=== PATIENT | male | born 1955 | race Caucasian/White ===

== ENCOUNTER 2023-12-07 10:41 | Inpatient (IN) | payer OTHER, MEDICARE, SELFPAY ==
[2023-12-07] VITALS (11 sets, daily range): BP systolic 113–134; BP diastolic 73–87; PULSE 60; O2SAT 100; BMI 27.9; BMI 27.8
[2023-12-07 05:32] LABS: % Basophils 0.6 % (0-2); % Immature Granulocytes 0.4 % (0-0.5); % Monocytes 8.3 % (1.7-9.3); % Neutrophils 59.7 % (42.2-75.2); Absolute Eosinophils 0.2 10^3/uL (0-0.7); Absolute Lymphocytes 1.4 10^3/uL (1.2-3.4); Absolute Monocytes 0.4 10^3/uL (0.1-0.6); Hemoglobin 13.9 g/dL (13.0-18.0); Mean Corp Hgb Conc. 34.8 g/dL (33.0-37.0); Mean Corpuscular Hgb 29.1 pg (27.0-31.0); Mean Corpuscular Volume 83.9 fL (80.0-94.0); Mean Platelet Volume 8.7 fL (7.4-10.4); Nucleated Red Blood Cells % 0 % (-); Platelet Count 208 10^3/uL (130-400); Red Blood Cell Count 4.77 10^6/uL (4.70-6.10); Red Cell Dist. Width 12.2 % (11.5-14.5); White Blood Cell Count 5.1 10^3/uL (4.8-10.8)
[2023-12-07] MEDS: ZOFRAN 4 MG IV ×2 (05:39→17:44)
[2023-12-07 05:51] LABS: ALT (SGPT) 24 U/L (0-50); AST (SGOT) 26 U/L (17-59); Albumin 4.3 g/dl (3.5-5.0); Alkaline Phosphatase 64 U/L (38-126); Blood Urea Nitrogen 17 mg/dl (9-20); Calcium 9.1 mg/dl (8.4-10.2); Carbon Dioxide 24 mmol/L (22-30); Chloride 107 mmol/L (98-107); Estimated Creatinine Clearance 93 ml/min; Glucose 128 mg/dl (70-99); Sodium 140 mmol/L (135-145); Total Bilirubin 0.9 mg/dl (0.2-1.3); Total Protein 6.4 g/dl (6.3-8.2); eGFR > 60.00
--- NOTE | 2023-12-07 06:22 | ED.GENMED ---
History of Present Illness
General
Chief Complaint: Dizziness
Source: patient, records and spouse
Exam Limitations: none
Time Seen by Provider: 12/07/23 05:59
Nursing documentation reviewed up to this point in time: agreed with
History of Present Illness
History of Present Illness:
Patient is a 68-year-old male who presents to the emergency department after waking at 4 AM with dizziness and the room spinning. Patient was nauseous with vomiting and diaphoretic. Patient was unable to stand. Patient woke in a couple times
during the night with mild dizziness but this was much more severe and would not resolve. Patient denies any palpitations, chest pain, shortness of breath. Patient denies any recent fever or chills, nasal congestion, sore throat or cough. Patient
denies abdominal pain or diarrhea. Patient denies any head or neck pain. Patient denies any manipulation of his neck recently. Patient denies any visual or speech difficulties. Patient denies any focal weakness. Patient was ataxic. Patient has
chronic tinnitus and decreased hearing and these remain unchanged. Patient does have a pacemaker for sick sinus syndrome. Patient denies any recent illnesses or injuries. Approximately a year ago the patient had an echocardiogram for dilated
aortic root. The echo showed good cardiac function and that the dilated aortic root had actually decreased in size.
Past History
Past History
ED Past Medical History: Arrthythmia (sick sinus syndrome, paroxysmal V. tach), Hypercholesterolemia and Other (Dilated aortic root)
ED Past Surgical History: Cardiac and Orthopedic
Social History
Tobacco: Non-smoker
Alcohol: Occasional
Family History
Family History: Negative Diabetes, Hypertension or CAD
Review of Systems
Review of Systems
All Other Systems: ROS reviewed and negative except as documented in HPI and ROS
Constitutional: Reports fatigue; Denies fever or chills
EENT: Reports other (Chronic tinnitus and decreased hearing unchanged); Denies sore throat or runny nose
Respiratory: Reports no symptoms
Cardiac: Reports no symptoms
ABD/GI: Reports nausea and vomiting; Denies abdominal pain or diarrhea
: Reports no symptoms
Musculoskeletal: Reports no symptoms
Skin: Reports no symptoms
Neurological: Reports dizzy; Denies headache, weakness or numbness
Hematologic/Lymphatic: Reports no symptoms
Phy Exam
Physical Exam
Physical Exam:
Physical Exam
General: moderate distress, alert and appropriate, well nourished, well hydrated
HENT: Normocephalic, supple with no lymphadenopathy, no thyromegaly
Eyes: Clear sclera, conjuctiva without injection, horizontal nystagmus going either direction and listening going to the dizziness that does resolve after multiple beats of nystagmus
Heart: Regular rhythm and rate. No S3, S4. No murmur. No NVD, bruit
Lungs: No respiratory distress, no stridor, lung sounds clear and equal bilaterally
Abdomen: Soft, nontender, no organomegaly, no CVA tenderness, BS good
Neuro: Alert and oriented x 3, CN II - XII intact, no motor focality, no cerebellar dysfunction, sensory intact
Skin: no rash. Pale mildly diaphoretic
Psychiatric: well kept. interactive and cooperative
Extremities: No edema, cyanosis, tenderness, Good and equal peripheral pulses.
Scores
Heart Failure Risk
Heart Failure Risk Score: Not Applicable
Heart Score for Chest Pain Patients
STEMI patient?: Not applicable
Withdrawal Assessment of Alcohol
Withdrawal Assessment Completed?: Not applicable
Course
Orders/Labs/Results
Orders:
Orders
12/07/23 05:10
EKG [Electrocardiogram (*1)] Urgent
Reason for Study: Vertigo / Dizzy
EKG- Treatment ONCE
12/07/23 05:23
CMP [Comprehensive Metabolic Panel] Urgent
Complete Blood Count/With Diff Urgent
12/07/23 05:38
Ondansetron Injectable [Zofran] 4 mg .ROUTE .[facility]
12/07/23 05:39
Ondansetron Injectable [Zofran] 4 mg IV NOW STA
12/07/23 05:51
Troponin I Urgent
12/07/23 Breakfast
Cholesterol Lowering
At Your Request: Full Participation
Cholesterol Lowering: Sodium, 2 Gram
12/07/23 06:10
0.9% Sodium Chloride 1000 ml [Nss] 1,000 ml IV BOLUS
Lorazepam [Ativan] 0.5 mg IV NOW STA
12/07/23 06:11
CT Head W/o Iv Contrast Urgent
Comment:
Reason For Exam: vertigo
12/07/23 07:18
Physical Therapy Consult [Pt Eval And Treat] Urgent
Treatment: vertigo
Activity Level: Ambulate
12/07/23 09:13
Consult Neurology [NEUROLOGY CONSULT] Urgent
Consulting Provider: Jhonny Grace
Was physician already notified: Yes
Reason for consult: veryigo
12/07/23 10:23
DIETARY CONSULT Routine
Reason for Consult: stroke/TIA
12/07/23 10:31
Admit/Transfer Patient As Directed
Co-Sign Provider:
Level of Care: Inpatient admission
Assign to:: Telemetry
Physician / Group: lyn miller
Diagnosis: vertigo
Reason for Telemetry: Arrhythmia
Date to Stop Telemetry: 12/10/23
Time to Stop Telemetry: 11:00
Reason for Hospitalization: vertigo
Expected length of stay greater than two midnights?: Yes
ELOS- Estimated Length of Stay in days: 3
I certify the patient meets the requirements for IP care: Yes
12/07/23 10:33
Code Status As Directed
Resuscitation Status: Full Code
12/07/23 10:36
Meclizine [Antivert] 25 mg PO Q8HPRN PRN
12/07/23 11:39
Bisacodyl [Dulcolax] 10 mg RECTAL [id number] PRN
Docusate W/Senna [Senokot-S] 1 tablet PO BIDPRN PRN
Ondansetron Injectable [Zofran] 4 mg IV Q6HPRN PRN
Polyethylene Glycol Powder [Miralax] 17 grams PO DAILYPRN PRN
12/07/23 11:39
Activity As Directed
Activity Level: As Tolerated
Neurological Checks As Directed
Frequency: q4h
Vital Signs As Directed
Frequency: Per unit guidelines
Pulse Ox/spot Check [RESP] Routine
Quantity: 1
DX Deep Vein Thrombosis Video Routine
12/07/23 12:14
Ibuprofen [Motrin] 600 mg PO BIDPRN PRN
12/07/23 18:00
Acebutolol [Sectral] 200 mg PO QPM
Enoxaparin Sodium [Lovenox] 30 mg SC QPM
Rosuvastatin Calcium [Crestor] 10 mg PO QPM
12/08/23 08:00
Ascorbic Acid [Vitamin C] 500 mg PO DAILY
Cholecalciferol (Vitamin D3) [VITAMIN D3 (cholecalciferol)] 25 mcg PO DAILY
Multivitamin [Theragran] 1 tablet PO DAILY
12/10/23 11:00
DC Protocol for Telemetry ONCE
Abnormal Lab Results
12/07/23
05:23
Glucose 128 H mg/dl
(70-99)
12/07/23 05:23
12/07/23 05:23
Vital Signs
Initial and Last Documented VS:
Initial Vital Signs
Temp Pulse Resp BP Pulse Ox
97.7 F 61 16 121/83 95
12/07/23 05:12 12/07/23 05:12 12/07/23 05:12 12/07/23 05:12 12/07/23 05:12
Last Documented Vital Signs
Temp Pulse Resp BP Pulse Ox
98.2 F 61 16 122/73 97
12/07/23 11:58 12/07/23 11:58 12/07/23 11:58 12/07/23 11:58 12/07/23 11:58
*Radiology
Radiology exam reviewed: radiology read reviewed
*Pulse Oximetry
Patient hypoxic: no
*EKG
Interpreted by ED Provider?: Yes
EKG Intrepretation Date: 12/07/23
EKG Intrepretation Time: 06:29
Interpretation: abnormal
Comparison EKG: no changes
Heart Rate: 63
Rate: normal
Rhythm: av sequential
*Insulation Cupola Charger Interpretation
Rate: normal
Interpretation: abnormal
Heart Rate: 63
Rhythm: av sequential
*Critical Care Note
Total Time (30-74mins, 75-104mins- exclusive of procedures): Not Applicable
Update Note
Update Note:
Patient seen by physical therapy and there is concern that this is not a peripheral cause with central cause. Patient has a pacemaker and may not be able to go into the MRI. Patient will be admitted for treatment and further workup and therapy.
Cardiology check the patient's pacemaker and it is MRI compatible. Spoke with hospitalist and requesting consult with neurology.
ED Attending Note
-
Portions of this chart may have been created with voice recognition software.� Occasional wrong word or��sound alike� substitutions may have occurred due to the inherent limitations of voice recognition software.
Discharge Plan
Departure
Patient Disposition: Admit
Date of Disposition: 12/07/23
Time of Disposition: 09:03
Admit to: Telemetry
Admit to doctor: Hospitalist
Presentation/result/management discussed w/ accepting MD/DO: Hospitalist
Patient with high blood pressure during this ER visit?: No
Condition: Serious
Covid-19: Not Applicable
Discharge Problem:
Vertigo
Interventions
Interventions:
*Risk Screen - Suicide Last Done: 12/07/23 12:21
*General Assessment Last Done: 12/07/23 05:12
*Neglect/Abuse Screening Last Done: 12/07/23 05:12
ED- Fall Risk Assessment Last Done: 12/07/23 05:12
*ED COVID-19 Vaccine History Last Done: 12/07/23 12:21
*Nursing Disposition Last Done: 12/07/23 11:40
ED- Neurological Assessment Last Done: 12/07/23 11:00
ED- Cardiac Assessment Last Done: 12/07/23 05:54
ED Swallowing Screen Last Done: 12/07/23 05:54
Discharge Date and Time
Discharge Date/Time: 12/07/23 11:41
[2023-12-07 06:24] LABS: Troponin I < 0.012 ng/ml
[2023-12-07] MEDS: ATIVAN 0.5 MG IV (06:39)
[2023-12-07] MEDS: NSS 1000 IV (06:40)
--- NOTE | 2023-12-07 09:53 | HP.FOC2 ---
Focused History & Physical
Chief Complaint
Relevant Past Medical History: Negative
Relevant Social History: ETOH (4 drinks per week, 2 on monday and 2 on monday), Substance Abuse (no hx) and Tobacco Use (no hx)
Relevant Family History: Positive for (father with CAD, Mother with Ovarian Ca)
Relevant Past Surgical History: Positive for (right shoulder and knee athroscopy, left knee athroscopuy, pacemake, right ulner nerve decompression, dnetal implants, ppm in 2005)
Review of Systems
Review of Pertinent Systems: All Systems Negative Except for the Following Positives
Medication
See Medication form for detailed medications: Yes
Medication List (including Herbals & OTC):
acebutolol 200 mg capsule 200 mg PO QPM 02/23/12
rosuvastatin 10 mg tablet 10 mg PO QPM 12/08/17
ibuprofen 200 mg tablet 600 mg PO BIDPRN PRN mild pain 06/02/21
collagen 1 dose PO DAILY 07/01/22
multivitamin with minerals-folic acid 200 mcg chewable tablet (Multivitamin Gummies) 2 tab PO DAILY 07/01/22
ascorbic acid (vitamin C) 250 mg chewable tablet (Vitamin C) 500 mg PO DAILY 12/07/23
cholecalciferol (vitamin D3) 1 tab PO DAILY 12/07/23
Medications Reviewed: Yes
Allergies and Reactions
Patient has Allergies: Yes
Noted Allergies and Reactions:
Allergy/AdvReac Type Severity Reaction Status Date / Time
Sulfa (Sulfonamide Allergy Rash Verified 12/07/23 05:07
Antibiotics)
sulfisoxazole Allergy Rash Verified 12/07/23 05:07
Pertinent Physical Exam
All Other Systems: Negative (General: Sitting straight up in bed, no evidence of right or left lean, nad)
Head/Neck: Other (dizziness worse with head movements) and Other (Horizontal nystagmus)
Lungs: Normal
Heart: Normal
Abdomen: Normal
Extremities: Normal
Neurological: Normal and Other (CN II-XII intact, no finger dysmetry, heel to zambrano normal b/l)
Other: No focal neurological defecits, 5/5 motor strenght in UE/LE B/L
Diagnosis / Assessment
PLEASE Disregard. Wrong note type
Plan / Procedure
PLEASE Disregard. Wrong note type
Anesthesia/Sedation to be done by Anesthesia Provider: No
--- NOTE | 2023-12-07 10:30 | HPS.HSE ---
Family Physician
-
Family Physician: Kaleb Goss
Chief Complaint
-
Chief Complaint: dizziness and nausea/vomiting
History of Present Illness
HPI / Indication for Planned Procedure:
68M with a pmh hx of pafib and sss s/p ppm that was changed in 2022 presenting with acute onset dizziness described as room spinning sensation along with nausea and sweating. States was waking him up from his sleep, worse when he is moving his head,
opening his eyes, never occurred previously and without associated numbness, tinglining, loss of sensation, focal weakness, cold like symptoms. Did not attempt to ambulate and was brought to the hospital by EMS. Now his is at bedside.
CT brain without acute pathology. EKG atrially paced rhythm.
Trop negative
Should be noted he is [facility], has hearing aids, tinnitus is chronic
Medical History
Past Medical History
Past Medical History: Reports Arrhythmia and Hypercholesterolemia
Past Surgical History: Reports Cardiac (PPM ) and Orthopedic (Right knee and shoulder, left knee, right ulner nerve decompression)
Social History
Tobacco: Non-smoker
Alcohol: Occasional
Drug: None
Personal:
Living: With Family
Family History
Family History: CAD (Dad ) and Cancer (MOM - Ovarian )
Allergies / Home Medications
Allergies reflects when Allergies were last updated in [facility].
Home Medications with original date entered in [facility]
Allergy/Medication List:
sulfa - rash
Review of Systems
-
History Source: Patient and Family
A 12 point ROS was completed and negative except as noted: Yes
Physical Exam
Vital Signs
Vital Signs
Temp Pulse Resp BP Pulse Ox
97.7 F 60 13 130/87 98
12/07/23 05:12 12/07/23 07:00 12/07/23 07:00 12/07/23 07:00 12/07/23 06:45
Physical Exam
General: Well Developed, No Apparent Distress and Comfortable
HEENT: NormoCephalic, Anicteric, Atraumatic, Good Dentition, Ears Appear Normal and Hearing Impaired
Respiratory: Clear
Cardiac: S1/S2 and Regular Rhythm
Breast: Deferred by me
GI: Soft, Non Tender, Non Distended and Normal Bowel Sounds
Rectal: Deferred by Provider
Genito-urinary: Deferred by me
Musculoskeletal: No Clubbing, No Cyanosis and No Edema
Skin: Warm and Dry
Neuro: Awake, Alert, Oriented, AO x 3, No Motor Deficits, Nonfocal/grossly intact, Cranial Nerves Intact, No Sensory Deficits and Other (heel to zambrano normal, no finger dysmetry)
Psych: Calm
Laboratory Results
-
12/07/23 05:23
12/07/23 05:23
Laboratory Results
Total Bilirubin 0.9 mg/dl (0.2-1.3) 12/07/23 05:23
AST 26 U/L (17-59) 12/07/23 05:23
ALT 24 U/L (0-50) 12/07/23 05:23
Alkaline Phosphatase 64 U/L (38-126) 12/07/23 05:23
Troponin I < 0.012 ng/ml 12/07/23 05:51
Data Reviewed
-
Diagnostic Radiology: Image Personally Visualized and interpreted, Report Reviewed by me and Discussed with Family
CT Scan: Image Personally Visualized and interpreted, Report Reviewed by me and Discussed with Family
Medical Tests (Nuc Med, Echo, EKG etc): Image Personally Visualized and interpreted, Report Reviewed by me and Discussed with Family
Impression/Plan
-
IMPRESSION:
Vertigo with ddx of bppv, posterior cva/tia (but unlikely as neuro exam is not consistent), vestibular neuritis, meniere dieases
PAFIB c/b SSS s/p DC-PPM ([employer] Model [id number]/Serial [id number], Implant 07/01/2022)
HLD
PLAN:
Vertigo
-Provide meclizine and antiemetics
-Monitor on tele, without evidence of presyncope unlikley cardiac in nature
-MRI will need to confirm with [facility] if compatible
-Neuro consulted
-If MRI demonstrates stroke like findings then would consider obtain 2d echo with bubble if indicated, A1c and Lipid profile
-PT/OT consulted as he will likely benefit from vestibular rehab
PAFIB c/b SSS on BB with DC-PPM
-Continue Acebutolol
-ChadsVasc 1 not on AC
HLD
-Continue statin
Pending neuro eval +- MRI, PT/OT
Full Code
DVT ppx: LMWH
Diet: Regular House/Low Cholestrol
Dispo: [facility] with tele
[2023-12-07] MEDS: ANTIVERT 25 MG PO ×3 (11:05→23:37)
--- NOTE | 2023-12-07 16:43 | CON.NEURO4 ---
Consultation - Neurology 4
-
CONSULTING PHYSICIAN: Jhonny Grace MD(Neurology)
REFERRING PHYSICIAN: Hospitalist
DICTATED BY: Jhonny Grace
DATE/TIME OF REQUEST: December 07, 2023
DATE/TIME OF CONSULTATION: December 07, 2023 10:30 AM
Reason for Consultation: Dizziness
History of Present Illness:
This is a 68 year old right handed male who has presented to the hospital with chief complaint of dizziness. Of chronic atrial fibrillation sick sinus syndrome status post pacemaker placement, chronic hearing loss with tinnitus who had been in his
usual state of health till early this morning. He woke up feeling lightheaded and was unable to change positions without getting dizzy. He describes his symptoms as room spinning sensation with change in position or turning his head. No
difficulty speaking swallowing. No incoordination
Past Medical History: Chronic atrial fibrillation sick sinus syndrome chronic hearing loss
Surgical History: Cardiac pacemaker. Knee procedures. Right ulnar nerve decompression
Family History: Noncontributory
Social History: lives at home does not smoke use alcohol. 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
Allergies: Sulfa
Home Medications: Acebutolol Crestor vitamin D
Review of Symptoms:
Patient denies any fever, headache, chest pain, shortness of breath, GI or symptoms.
�Per the HPI.�All systems are reviewed negative except above.
�-
Vital Signs:
Temp Pulse Resp BP Pulse Ox
36.8 C 61 16 122/73 97
12/07/23 11:58 12/07/23 11:58 12/07/23 11:58 12/07/23 11:58 12/07/23 11:58
Physical Exam:
The patient is afebrile, heart sounds S1 and S2 are (regular / irregular), and chest is clear to auscultation bilaterally.
NIH Stroke Scale (if applicable):
Neurologic Examination:
The patient is awake, alert and oriented x 3. (He/She) is able to follow commands and answer questions appropriately. There is no aphasia or dysarthria. On cranial nerve assessment, pupils are 3 mm bilateral, round and reactive to light and
accommodation. Visual long are full. Extraocular movements are intact. Facial sensations are intact and bilaterally symmetrical, there is no facial asymmetry. Hearing is intact bilaterally to normal conversation volume. Tongue palate and uvula
are midline. Sternocleidomastoid strengths are full bilaterally. Motor strengths are 5/5 bilateral upper and lower extremities on medical research [place] scale. There is no drift or involuntary movement noted. Deep tendon reflexes are 2+ bilateral
upper and lower extremities and Babinski is absent bilaterally. Sensations of pain, touch, temperature and vibration are intact and bilaterally symmetrical. There was no extinction noted on double simultaneous stimulation. Coordination is intact by
finger to nose bilaterally.
Lab Results:
Neuro Imaging: MRI of head shows mild cortical atrophy normal ventricles minimal small vessel disease
Impression:
Mr. 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
Differentials for the patient's presentation include:
1. Vertebrobasilar insufficiency
Patient has the following risk factors for their symptoms:
IV Tenecteplase/IAT candidacy
Recommendations:
1. Meclizine
2. Aspirin
3. PT/OT
4. Bedrest
Discussed patient care with:
Total Time Spent with Patient (in minutes): 30
Vital Signs and Labs
-
Vital Signs and Labs:
Vital Signs
Temp Pulse Resp BP Pulse Ox
36.8 C 61 16 122/73 97
12/07/23 11:58 12/07/23 11:58 12/07/23 11:58 12/07/23 11:58 12/07/23 11:58
Lab Results
12/07/23 05:23
12/07/23 05:23
Sodium 140 mmol/L (135-145) 12/07/23 05:23
Potassium 4.0 mmol/L (3.5-5.1) 12/07/23 05:23
BUN 17 mg/dl (9-20) 12/07/23 05:23
Glucose 128 mg/dl (70-99) H 12/07/23 05:23
Calcium 9.1 mg/dl (8.4-10.2) 12/07/23 05:23
[2023-12-07] MEDS: MOTRIN 600 MG PO (16:53)
[2023-12-07] MEDS: LOVENOX 40 MG SC (16:55)
[2023-12-07] MEDS: ASPIR LOW (ENTERIC COATED) 81 MG PO (17:12)
[2023-12-07] MEDS: SECTRAL 200 MG PO (17:27)
[2023-12-07] MEDS: CRESTOR 10 MG PO (17:31)
[2023-12-07 18:41] LABS: Vitamin B12 404 pg/ml (239-931)
[2023-12-08 03:50] VITALS: BP 116/75
[2023-12-08 07:40] VITALS: BP 147/80
[2023-12-08] MEDS: VITAMIN D3 (cholecalciferol) 25 MCG PO (08:13)
[2023-12-08] MEDS: THERAGRAN 1 TABLET PO (08:13)
[2023-12-08] MEDS: ANTIVERT 25 MG PO (08:13)
[2023-12-08] MEDS: VITAMIN C 500 MG PO (08:13)
[2023-12-08] MEDS: ASPIR LOW (ENTERIC COATED) 81 MG PO (08:13)
--- NOTE | 2023-12-08 12:50 | W.DS.TRANS ---
DC Summary - Gardener
-
Discharge Instructions:
Discharge Diagnosis/Procedures BPPV
Diet Regular
Instructions:
Stand-Alone Forms:
Changes to Home Medications: Yes
Discharge Medications:
DC Medications w/original date entered in [facility]
acebutolol 200 mg capsule 200 mg PO QPM Blood Pressure 02/23/12
rosuvastatin 10 mg tablet 10 mg PO QPM High Cholesterol 12/08/17
ibuprofen 200 mg tablet 600 mg PO BIDPRN PRN mild pain 06/02/21
collagen 1 dose PO DAILY Supplement 07/01/22
multivitamin with minerals-folic acid 200 mcg chewable tablet (Multivitamin Gummies) 2 tab PO DAILY Supplement 07/01/22
ascorbic acid (vitamin C) 250 mg chewable tablet (Vitamin C) 500 mg PO DAILY Supplement 12/07/23
cholecalciferol (vitamin D3) 1 tab PO DAILY Supplement 12/07/23
meclizine 25 mg tablet 25 mg PO Q8HPRN PRN dizziness #30 tabs 12/08/23
Home Medication Changes
Meclizine added
Pending Results: No
--- NOTE | 2023-12-08 13:09 | PTCARENOTE ---
Peripheral IV removed. Reviewed discharge instructions with patient and . Both verbalize understanding of discharge instructions. Denies any questions. Left via wheelchair with staff escort. at bedside to transport home.
--- NOTE | 2023-12-08 14:16 | CM ---
CM attempted to complete IA, however patient had been discharged prior to my visit.
Chart reviewed - no needs anticipated.
== END 2023-12-08 13:11 | disposition home or self-care (01) | DRG 149 ==
LOC: 4 EAST ACU 10:41
PROVIDERS: Emergency Medicine; ADMITTING PHYSICIAN Hospitalist; ATTENDING PHYSICIAN Internal Medicine; CONSULT PHYSICIAN Psychiatry & Neurology Neurology; EMERGENCY PHYSICIAN Emergency Medicine; FAMILY PHYSICIAN Family Medicine
DX: H81.10 Benign paroxysmal vertigo, unspecified ear (principal); I48.0 Paroxysmal atrial fibrillation; I49.5 Sick sinus syndrome; H91.93 Unspecified hearing loss, bilateral; H93.13 Tinnitus, bilateral; E78.00 Pure hypercholesterolemia, unspecified; Z95.0 Presence of cardiac pacemaker; Z97.4 Presence of external hearing-aid
CPT/HCPCS: 70450; 70553; 71046; 80053; 82607; 84484; 85025; 93005; 96361; 96374; 96375; 99285; A9575